=== PATIENT | female | born 1970 | race African-American/Black ===

== ENCOUNTER 2016-12-09 07:08 | Inpatient (IN) | payer BC ==
[~2016-12-09] VITALS: Ht 175.3 cm; Wt 77.3 kg
[~2016-12-09 07:08] MED LIST: ASC500 PO; MULTI PO; OMEG-135 PO
[2016-12-09] MEDS ORDERED: ASCO500C7 PO (07:29)
[2016-12-09] MEDS ORDERED: OMEG-135 PO (07:30)
[2016-12-09 07:44] LABS: ADD SCAN DIFF NO
[2016-12-09 07:50] LABS: BASOPHILS % 0.5 % (0.0-2.0); EOSINOPHILS # 0.1 10^3/ul (0.0-0.5); EOSINOPHILS % 2.2 % (0.0-7.0); HEMATOCRIT 38.9 % (37.0-47.0); HEMOGLOBIN 12.3 g/dl (12.0-16.0); LYMPHOCYTES # 2.1 10^3/ul (0.8-2.9); LYMPHOCYTES % 49.6 % (15.0-51.0); MEAN CORPUSCULAR HEMOGLOBIN 28.9 pg (29.0-33.0); MEAN CORPUSCULAR HGB CONC 31.6 g/dl (32.0-37.0); MEAN CORPUSCULAR VOLUME 91.5 fl (82.0-101.0); MEAN PLATELET VOLUME 11.8 fl (7.4-10.4); MONOCYTE # 0.3 10^3/ul (0.3-0.9); MONOCYTES % 7.3 % (0.0-11.0); NEUTROPHIL # 1.7 10^3/ul (1.6-7.5); NEUTROPHILS % 40.2 % (39.0-77.0); PLATELET COUNT 225 10^3/UL (140-415); RED BLOOD COUNT 4.25 10^6/ul (4.20-5.40); RED CELL DISTRIBUTION WIDTH 13.9 % (11.5-14.5); WHITE BLOOD COUNT 4.1 10^3/ul (4.8-10.8)
[2016-12-09 08:06] LABS: CHLORIDE 106 mmol/L (97-110)
[2016-12-09 08:07] LABS: ALBUMIN 3.9 g/dl (3.3-4.9); POTASSIUM 4.2 mmol/L (3.5-5.1); SODIUM 142 mmol/L (135-144)
[2016-12-09 08:10] LABS: ALANINE AMINOTRANSFERASE 23 IU/L (13-69); ALBUMIN/GLOBULIN RATIO 1.11; ALKALINE PHOSPHATASE 43 IU/L (42-121); ANION GAP 15 (8-16); ASPARTATE AMINO TRANSFERASE 20 IU/L (15-46); BILIRUBIN,INDIRECT 0.1 mg/dl (0-1.1); BILIRUBIN,TOTAL 0.1 mg/dl (0.2-1.3); BLOOD UREA NITROGEN 7 mg/dl (7-20); CARBON DIOXIDE 25 mmol/L (21-31); CREATININE 0.72 mg/dl (0.44-1.00); GLUCOSE 87 mg/dl (70-220); TOTAL PROTEIN 7.4 g/dl (6.1-8.1)
[2016-12-09 08:11] LABS: CALCIUM 9.3 mg/dl (8.4-10.2); INR 0.89; PT RATIO 0.9
[2016-12-09 08:12] LABS: PARTIAL THROMBOPLASTIN TIME 28.8 Sec (25.0-35.0)
--- NOTE | 2016-12-09 08:12 | RADRPT ---
PROCEDURE: Chest Radiograph. CLINICAL INDICATION: Chest pain TECHNIQUE: Single frontal chest radiograph. COMPARISON: None available FINDINGS: The cardiomediastinal silhouette is within normal limits. No infiltrate or effusion is seen. Th e bones are intact. IMPRESSION: 1. Unremarkable chest radiograph. RPTAT: AA .Emiliano Kramer MD, MD Date Time Electronically viewed and signed by .Emiliano Kramer MD, on 12/09/2016 08:11 .B/
[2016-12-09 08:18] LABS: B-TYPE NATRIURETIC PEPTIDE 109 PG/ML (0-125)
[2016-12-09 08:24] LABS: TROPONIN-I < 0.012 ng/ml (0.00-0.12)
[2016-12-09] MEDS ORDERED: NACL 0.9% 3 ML SYG IV SCH (13:00)
[2016-12-09] MEDS ORDERED: HYDROCODONE/APAP (5/325) TAB PO PRN (13:00)
[2016-12-09] MEDS ORDERED: morphine 2 MG INJ IV PRN (13:00)
[2016-12-09] MEDS ORDERED: ONDANSETRON 4 MG INJ IV PRN (13:00)
[2016-12-09] MEDS ORDERED: ACETAMINOPHEN 325 MG TAB PO PRN (13:00)
[2016-12-09] MEDS ORDERED: NITROGLYCERIN (SL) 0.4 MG TAB SL PRN (13:00)
[2016-12-09 13:54] LABS: CREATINE KINASE 90 IU/L (23-200)
[2016-12-09 13:57] VITALS: BP 127/74; PULSE 71; RESP 18; Ht 175.3 cm; Wt 77.3 kg
[2016-12-09 14:07] LABS: CK-MB < 0.22 ng/ml (0.0-2.4); TROPONIN-I < 0.012 ng/ml (0.00-0.12)
[2016-12-09 14:18] VITALS: PULSE 75
--- NOTE | 2016-12-09 14:24 | HP ---
DATE OF ADMISSION: 12/09/2016 TIME OF EVALUATION: 12:30 p.m. REASON FOR ADMISSION: Chest pain and dyspnea. CONSULTATIONS: Dr. Ton Graham, Cardiology. HISTORY OF PRESENT ILLNESS: This is a 46-year-old -[place]og[place] female who denies any past medical history who came to the emergency room with a chief complaint of chest pain and palpitations as well as dyspnea that has been going on and off for the past 2 months or so. The patient had a prior authorization with her insurance to see a ultrasonic tester because of these symptoms. A scheduled cardiology appointment was in 12/2016. The patient could not wait until then and the patient was having worsening symptoms. Hence, she came to the hospital. The patient verbalized the chest pain as an "elephant standing" on her chest. The patient verbalized that the chest pain is worse with lying down. The patient also verbalized periods of palpitations and dyspnea as well as generalized tiredness and episodes of dizziness. The patient denied any radiation of chest pain. The patient did not take any medications to help relieve her pain. The patient verbalized that a few months ago she went to see her primary care physician because of left upper extremity and left lower extremity numbness. At that time, she was told that this is probably because of her back injury that she had many years ago. The patient does not take any medications regularly for her back pain or left-sided numbness. The patient denied any left-sided numbness or weakness at this time. The patient denied any fevers, cough, abdominal pain, nausea, vomiting, diarrhea, hematochezia, dysuria. The patient denied any calf pain. In the emergency room, the patient' s troponins were negative. The patient's 12-lead EKG showed normal sinus rhythm. PAST MEDICAL HISTORY: Denies. PAST SURGICAL HISTORY: Cholecystectomy, tubal ligation. HOME MEDICATIONS: None. ALLERGIES: TETRACYCLINES. SOCIAL HISTORY: The patient lives at home. The patient works as an manager of program. No history of tobacco, alcohol or illicit drug use. FAMILY HISTORY: Negative for any coronary artery disease. REVIEW OF SYSTEMS: A 12-point review of systems was made and the review of systems is negative other than what is mentioned in history of present illness. PHYSICAL EXAMINATION VITAL SIGNS: Temperature 98.5, pulse 71, respiratory rate 18, blood pressure 123/71, oxygen saturation 99% on low flow O2. GENERAL: This is a well-built, well-nourished -[place]ogolese female lying in bed in no apparent distress. HEENT: Head normocephalic and atraumatic. Eyes: Anicteric sclerae. Conjunctivae clear. ENT: Nasal septum is midline. Oral mucosa is dry. NECK: Supple. No JVD noticed. RESPIRATORY: Bilaterally clear to auscultation. No adventitious breath sounds heard. No use of accessory muscles of respiration. CARDIAC: Regular rate and rhythm. S1, S2 heard. ABDOMEN: Soft, nontender and nondistended. Bowel sounds positive in all 4 quadrants. GENITOURINARY: Deferred. EXTREMITIES: No cyanosis, no clubbing, no edema. Peripheral pulses are palpable. NEUROLOGIC: The patient is awake, alert and oriented. Cranial nerves are grossly intact. LABORATORY AND DIAGNOSTIC DATA: WBC 4.1, hemoglobin 12.3, hematocrit 38.9, platelet count 225. Sodium 142, potassium 4.2, chloride 106, carbon dioxide 25 , anion gap 15, BUN 7, creatinine 0.72, glucose 87, calcium 9.3, AST 20, ALT 23 , alkaline phosphatase 43, troponin less than 0.012. BNP 109, total protein 7.4 , albumin 3.9. PT 12.0, INR 0.898, PTT 28.8. Chest x-ray: No acute cardiopulmonary findings. 12-lead EKG: Normal sinus rhythm. IMPRESSION: This is a 46-year-old -[place] female with no significant past medical history, but a recent history of chest pain and palpitations, who came to the emergency room with a chief complaint of worsening chest pain, palpitations and generalized malaise, who will be admitted for further treatment and evaluation. ASSESSMENT AND PLAN: 1. Chest pain. To rule out acute coronary syndrome. Serial troponins will be ordered on this patient. A 2D echocardiogram will be obtained to evaluate the left ventricular ejection fraction. The patient will be started on low dose aspirin. A cardiology consult will be obtained. The patient will be monitored on telemetry floor. Plan. The patient will be admitted to inpatient telemetry floor. The patient will be started on a regular diet. The patient will be started on deep venous thrombosis prophylaxis and gastrointestinal prophylaxis. The patient will remain a FULL CODE. Activities will be as tolerated. The rest of the patient's management will be based on the clinical course, the results of diagnostic studies, and input from consultants. Based on the patient's clinical presentation, she most probably requires at least 1 midnight's stay for further management and evaluation of her clinical presentation. The case and management of this patient was fully discussed with Dr. Hinson. ASHLY HINSON MD, AM/TOSHIA Conf#: [id number] DID#: [id number] EDMUND
[2016-12-09 15:31] VITALS: BP 139/67; RESP 18
[2016-12-09 16:00] VITALS: PULSE 85
--- NOTE | 2016-12-09 16:06 | CONS ---
DATE OF ADMISSION: 12/09/2016 DATE OF CONSULTATION: 12/09/2016 REASON FOR CONSULTATION: Chest pain, palpitations, assess for acute coronary syndrome. Assess for cardiac arrhythmia. REQUESTING PHYSICIAN: Dr. Hinson from the hospitalist service. HISTORY OF PRESENT ILLNESS: Ms. Modi is a very pleasant 46-year-old female with history of recent onset of palpitations and associated chest pain for approximately the last 2 to 3 months. The patie nt states the palpitations come on intermittently after exercise and subsides when she is just sitti ng still. Additionally, the patient had palpitations, started on the left side and when she lays on her back, she has a pressure-like feeling, as an elephant is standing on her chest. Upon arrival i n the emergency department, temperature 98.5, blood pressure 135/94, pulse 89, respiratory rate 22, saturating 99%. Patient's labs show sodium 142, potassium 4.2, creatinine 0.7, BUN 7, AST 20, ALT 2 3. Troponin negative. BNP 109. TSH of 1.41. Patient underwent a chest x-ray revealing no acute c ardiopulmonary abnormalities. The patient's electrocardiogram revealed normal sinus rhythm, rate of 83, normal axis, normal intervals, isolated T-wave flattening in aVL. The patient was treated with sublingual nitroglycerin and has been admitted to the floor. Since admit to floor, patient states she continues to have mild substernal chest pain. PAST MEDICAL HISTORY: As above in HPI. MEDICATIONS CURRENTLY IN HOSPITAL: 1. Aspirin 81 mg daily. 2. Lovenox 20 mg subcutaneous daily. 3. Sublingual nitroglycerin. 4. Tylenol p.r.n. 5. Omar p.r.n. 6. Morphine p.r.n. ALLERGIES: TETRACYCLINE. SOCIAL HISTORY: No tobacco, ETOH or illicit drug use. FAMILY HISTORY: No history of sudden cardiac or early CAD. REVIEW OF SYSTEMS: As above in HPI. CONSTITUTIONAL: No fevers, chills. PULMONARY: No current shortness of breath. CARDIOVASCULAR: Intermittent chest pain. GASTROINTESTINAL: No vomiting. GENITOURINARY: No hematuria. MUSCULOSKELETAL: No significant myalgias or arthralgias. ENDOCRINE: No documented history of diabetes mellitus. PHYSICAL EXAMINATION: VITAL SIGNS: Temperature 98.5, blood pressure 123/71, pulse 71, respiratory rate 18, saturating 99% . GENERAL: The patient is alert, awake, complaining of intermittent chest pain, palpitations. NECK: JVP approximately 8 cm water. CHEST: Fair air movement throughout. HEART: Regular rate and rhythm. Normal S1, S2, I/ systolic murmur, nondisplaced PMI. ABDOMEN: Positive bowel sounds, soft. EXTREMITIES: No pitting edema, 1+ pulses bilaterally, posterior tibial. LABORATORIES: As above in HPI with the troponins were negative since admit. IMAGING STUDIES: As above in HPI. No further imaging studies for my review at this time. ECG: No further electrocardiograms for my review at this time. IMPRESSION: 1. Chest pain, assess for acute coronary syndrome. 2. Palpitations, assess for cardiac arrhythmia. 3. Abnormal electrocardiogram with nonspecific ST-T abnormalities. RECOMMENDATIONS: 1. At this time, would maintain the patient on telemetry monitoring to follow rhythm and rate contr ol closely and assess for any possible rhythm causes to the patient's palpitations. 2. Check a 2D echocardiogram to further assess patient's ejection fraction, wall motion and any justo or valve abnormalities. 3. Complete a rule out for myocardial infarction to ensure that the patient's chest pain is not due to acute coronary syndrome versus acute myocardial infarction. 4. Check a TSH to be sure that subclinical hyperthyroidism is not contributing to bouts of palpitat ions or arrhythmias. 5. Will consider low dose oral nitrates to treat patient's chest pain. 6. Sublingual nitroglycerin p.r.n. for breakthrough pain. 7. If the patient does rule out for myocardial infarction, will consider cardiac stress test in the morning. Thank you for allowing me to take part in the care of this patient. I will continue to follow along very closely with you. Further recommendations to be made as the patient progresses through her in patient hospital course. Dictated By: HENRIK GASTELUM/TOSHIA Conf#: [id number] DID#: [id number] CC: ASHLY AUSTIN NP; GLORIA HINSON MD;*End*
[2016-12-09] MEDS: ASPIRIN 81 MG TAB PO SCH (16:59)
[2016-12-09] MEDS: FAMOTIDINE 20 MG TAB PO SCH ×2 (16:59→23:21)
[2016-12-09] MEDS: ENOXAPARIN 40 MG/0.4 ML SYG SC SCH (17:06)
[2016-12-09 17:17] LABS: ADD UMIC NO; URINE BILIRUBIN (Dip) NEGATIVE (NEGATIVE); URINE BLOOD (Dip) NEGATIVE (NEGATIVE); URINE COLOR LT. YELLOW (YELLOW); URINE GLUCOSE (Dip) NEGATIVE (NEGATIVE); URINE KETONES (Dip) NEGATIVE (NEGATIVE); URINE LEUKOCYTE ESTERASE (Dip) NEGATIVE (NEGATIVE); URINE NITRITE (Dip) NEGATIVE (NEGATIVE); URINE TOTAL PROTEIN (Dip) NEGATIVE (NEGATIVE); URINE UROBILINOGEN (Dip) 0.2 E.U./dL (0.1-1.0)
[2016-12-09 18:15] LABS: BARBITURATES NEGATIVE (NEGATIVE); BENZODIAZEPINES NEGATIVE (NEGATIVE); CANNABINOIDS NEGATIVE (NEGATIVE); COCAINE NEGATIVE (NEGATIVE); OPIATES NEGATIVE (NEGATIVE)
--- NOTE | 2016-12-09 19:22 | RADRPT ---
Echocardiogram Report Patient Name: LUCERO GARCIA Gender: Female Date: 1970 Study Date: 09-Dec-2016 Director Of Partner Marketing: Chelsie Lozano RDCS Location: 9 Ref. Physician: ASHLY AUSTIN Quality: Adequate Procedures: Transthoracic echocardiogram with complete 2D, M-Mode, and doppler examination. Indications: Chest Pain. 2D/M Mode Doppler Measurement Value Normal Ranges Measurement Value Normal Ranges LVIDd 2D 4.5 3.5 - 5.6 cm AV Peak Jefe 0.9 m/sec LVIDs 2D 3.2 2.1 - 4.1 cm AV Peak PG 3.5 mmHg LVPWd 2D 1.2 0.6 - 1.1 cm LVOT Peak Jefe 0.9 m/sec IVSd 2D 1.2 0.6 - 1.1 cm LVOT Peak PG 3.1 mmHg AoR Diam 2D 2.9 2.0 - 3.7 cm MV E Peak Jefe 0.7 m/sec EDV 2D 93.2 cm3 MV A Peak Jefe 0.7 m/sec ESV 2D 33.1 cm3 MV E/A 1.1 LA Dimen 2D 3.1 2.3 - 4.0 cm MV Decel Time 208 msec MV Decel [place] 3 MV E/A 1.1 TR Peak Jefe 2.8 m/sec TR Peak PG 30.8 mmHg RVSP 39.0 mmHg Findings Left Ventricle: Normal left ventricular systolic function. Normal left ventricular cavity size. Mild concentric left ventricular hypertrophy. Ejection fraction is visually estimated at 55 %. Tissue Doppler/Mitral Doppler indices are consistent with impaired relaxation (Stage I diastolic dysfunction). Right Ventricle: Normal right ventricular size. Normal right ventricular systolic function. Left Atrium: The left atrium is normal in size. Right Atrium: The right atrium is normal in size. Mitral Valve: Mitral valve leaflets appear mildly thickened. Mild mitral annular calcification. Trace mitral regurgitation. Aortic Valve: Normal appearance of the aortic valve. No significant aortic stenosis or insufficiency. Tricuspid Valve: Normal appearance of the tricuspid valve. Estimated peak PA systolic pressure 39 mmHg. There is trace to mild tricuspid regurgitation. Pulmonic Valve: Pulmonic valve not well visualized. Pericardium: Normal pericardium with no significant pericardial effusion. Aorta: Normal aortic root. IVC: Normal size and normal respiratory collapse consistent with normal right atrial pressure. Conclusions 1.Normal left ventricular systolic function. Normal left ventricular cavity size. Mild concentric left ventricular hypertrophy. Ejection fraction is visually estimated at 55 %. Tissue Doppler/Mitral Doppler indices are consistent with impaired relaxation (Stage I diastolic dysfunction). 2.Mitral valve leaflets appear mildly thickened. Mild mitral annular calcification. Trace mitral regurgitation. 3.Normal appearance of the tricuspid valve. Estimated peak PA systolic pressure 39 mmHg. There is trace to mild tricuspid regurgitation. Electronically Signed By: Ton Graham 09-Dec-2016 19:21:05 -0700 Patient Name: LUCERO GARCIA Study Date: 09-Dec-2016 [id number]
[2016-12-09 20:00] VITALS: BP 134/60; RESP 18
[2016-12-09 20:02] LABS: CREATINE KINASE 77 IU/L (23-200)
[2016-12-09 20:08] VITALS: PULSE 80
[2016-12-09 20:17] LABS: CK-MB < 0.22 ng/ml (0.0-2.4); TROPONIN-I < 0.012 ng/ml (0.00-0.12)
[2016-12-09] MEDS: ISOSORBIDE DINITRATE 10 MG TAB PO SCH (20:50)
[2016-12-10] VITALS (8 sets, daily range): BP systolic 106–136; BP diastolic 52–69; PULSE 68–86; RESP 16
[2016-12-10 06:52] LABS: ADD SCAN DIFF NO
[2016-12-10 06:55] LABS: BASOPHILS % 0.6 % (0.0-2.0); EOSINOPHILS # 0.1 10^3/ul (0.0-0.5); EOSINOPHILS % 1.5 % (0.0-7.0); HEMATOCRIT 35.5 % (37.0-47.0); HEMOGLOBIN 11.3 g/dl (12.0-16.0); LYMPHOCYTES # 1.6 10^3/ul (0.8-2.9); LYMPHOCYTES % 47.5 % (15.0-51.0); MEAN CORPUSCULAR HEMOGLOBIN 28.9 pg (29.0-33.0); MEAN CORPUSCULAR HGB CONC 31.8 g/dl (32.0-37.0); MEAN CORPUSCULAR VOLUME 90.8 fl (82.0-101.0); MEAN PLATELET VOLUME 11.7 fl (7.4-10.4); MONOCYTE # 0.3 10^3/ul (0.3-0.9); NEUTROPHIL # 1.4 10^3/ul (1.6-7.5); NEUTROPHILS % 42.1 % (39.0-77.0); PLATELET COUNT 205 10^3/UL (140-415); RED BLOOD COUNT 3.91 10^6/ul (4.20-5.40); RED CELL DISTRIBUTION WIDTH 13.8 % (11.5-14.5); WHITE BLOOD COUNT 3.3 10^3/ul (4.8-10.8)
[2016-12-10 07:14] LABS: MAGNESIUM 1.8 mg/dl (1.7-2.5)
[2016-12-10 07:18] LABS: ALBUMIN 3.4 g/dl (3.3-4.9); ALBUMIN/GLOBULIN RATIO 1.03; BILIRUBIN,INDIRECT 0.1 mg/dl (0-1.1); BILIRUBIN,TOTAL 0.1 mg/dl (0.2-1.3); CALCIUM 8.8 mg/dl (8.4-10.2); CREATININE 0.73 mg/dl (0.44-1.00); POTASSIUM 4.1 mmol/L (3.5-5.1); TOTAL PROTEIN 6.7 g/dl (6.1-8.1)
[2016-12-10 07:24] LABS: CHOL/HDL RATIO 3.4 RATIO
[2016-12-10] MEDS: ASPIRIN 81 MG TAB PO SCH (08:18)
[2016-12-10] MEDS: ISOSORBIDE DINITRATE 10 MG TAB PO SCH ×2 (08:23→13:28)
[2016-12-10] MEDS: FAMOTIDINE 20 MG TAB PO SCH (08:23)
[2016-12-10] MEDS: ENOXAPARIN 40 MG/0.4 ML SYG SC SCH (09:02)
[2016-12-10 09:08] LABS: CREATINE KINASE 72 IU/L (23-200)
[2016-12-10 09:10] LABS: CK-MB < 0.22 ng/ml (0.0-2.4)
[2016-12-10 09:24] LABS: TROPONIN-I < 0.012 ng/ml (0.00-0.12)
--- NOTE | 2016-12-10 12:41 | PDOCDIS ---
Discharge Instructions DIAGNOSIS Discharge Diagnosis: 1. Chest pain 2. Reported chest palpitations CONDITION Patient Condition: Stable HOME CARE INSTRUCTIONS: Diet Instructions: Low Fat /Cholesterol FOLLOW UP/APPOINTMENTS Appointments 1. Follow-up with your primary care provider within a week 2. Follow-up with Dr. Ton Graham in 2 weeks NIKKI FORTUNE December 10, 2016 12:41
[2016-12-10] MEDS ORDERED: ISOS10TA2 PO (12:43)
[2016-12-10] MEDS ORDERED: ASPI81TA3 PO (12:43)
--- NOTE | 2016-12-10 16:16 | CONS ---
Date/Time of Note Date/Time of Note DATE: 12/10/16 TIME: 16:11 Assessment/Plan Assessment/Plan Additional Assessment/Plan Atypical chest pain non myocardial in nature echo shows normal systolic function no more episodes of chest pain ok for discharge stopped imdur Consultation Date/Type/Reason Admit Date/Time December 09, 2016 at 11:11 Social History Smoking Status: Never smoker Exam/Review of Systems Vital Signs Vitals Vital Signs Date Time Temp Pulse Resp B/P Pulse Ox O2 Delivery O2 Flow Rate FiO2 12/10/16 13:01 70 12/10/16 12:13 98.5 16 136/67 99 12/09/16 13:57 Room Air Intake and Output 12/09/16 12/09/16 12/10/16 15:00 23:00 07:00 Intake Total 500 ml 500 ml Balance 500 ml 500 ml Exam Constitutional: alert, oriented Head: atraumatic, normocephalic Respiratory: clear to auscultation Cardiovascular: regular rate and rhythm Gastrointestinal: nl liver, spleen, non-tender, soft Extremities: normal pulses Results Result Diagram: 12/10/16 0600 12/10/16 0600 Results 24 hrs Laboratory Tests Test 12/09/16 19:30 12/10/16 06:00 Creatine Kinase 77 72 Creatine Kinase Index 0.3 0.3 Creatinine Kinase MB (Mass) < 0.22 < 0.22 Troponin I < 0.012 < 0.012 White Blood Count 3.3 L Red Blood Count 3.91 L Hemoglobin 11.3 L Hematocrit 35.5 L Mean Corpuscular Volume 90.8 Mean Corpuscular Hemoglobin 28.9 L Mean Corpuscular Hemoglobin Concent 31.8 L Red Cell Distribution Width 13.8 Platelet Count 205 Mean Platelet Volume 11.7 H Neutrophils % 42.1 Lymphocytes % 47.5 Monocytes % 8.0 Eosinophils % 1.5 Basophils % 0.6 Nucleated Red Blood Cells % 0.0 Neutrophils # 1.4 L Lymphocytes # 1.6 Monocytes # 0.3 Eosinophils # 0.1 Basophils # 0.0 Nucleated Red Blood Cells # 0.0 Sodium Level 137 Potassium Level 4.1 Chloride Level 109 Carbon Dioxide Level 24 Anion Gap 8 Blood Urea Nitrogen 8 Creatinine 0.73 Glucose Level 86 Calcium Level 8.8 Phosphorus Level 4.0 Magnesium Level 1.8 Total Bilirubin 0.1 L Direct Bilirubin 0.00 Indirect Bilirubin 0.1 Aspartate Amino Transf (AST/SGOT) 17 Alanine Aminotransferase (ALT/SGPT) 24 Alkaline Phosphatase 36 L Total Protein 6.7 Albumin 3.4 Globulin 3.30 H Albumin/Globulin Ratio 1.03 Triglycerides Level 41 Cholesterol Level 170 LDL Cholesterol, Calculated 112 HDL Cholesterol 50 Cholesterol/HDL Ratio 3.4 Medications Medications Current Medications Ondansetron HCl (Zofran Inj) 4 mg Q6H PRN IV NAUSEA AND/OR VOMITING; Start at 13:00 Aspirin (Aspirin) 81 mg DAILY PO Last administered on 12/10/16 08:18; Admin Dose 81 MG; Start 12/09/16 at 14:00 Nitroglycerin (Nitroglycerin (Sl Tab) 0.4 Mg) 1 tab Q5M PRN SL CHEST PAIN; Start 12/09/16 at 13:00 Acetaminophen (Tylenol Tab) 650 mg Q6H PRN PO PAIN LEVEL 1-3 OR FEVER Last administered on 12/10/16 08:18; Admin Dose 650 MG; Start 12/09/16 at 13:00 Acetaminophen/ Hydrocodone Bitart ([place] (5/325)) 1 tab Q6H PRN PO PAIN LEVEL 4 -6 Last administered on 12/10/16 11:06; Admin Dose 1 TAB; Start 12/09/16 at 13: 00 Morphine Sulfate (morphine) 2 mg Q4H PRN IV PAIN LEVEL 7-10; Start 12/09/16 at 13:00 Famotidine (Pepcid) 20 mg Q12 PO Last administered on 12/10/16 08:23; Admin Dose 20 MG; Start 12/09/16 at 14:00 Enoxaparin Sodium (Lovenox) 40 mg DAILY SC Last administered on 12/10/16 09:02 ; Admin Dose 40 MG; Start 12/09/16 at 14:00 Isosorbide Dinitrate (Isordil) 10 mg TID PO Last administered on 12/10/16 13: 28; Admin Dose 10 MG; Start 12/09/16 at 21:00 JUANI PAZ M.D. December 10, 2016 16:16
--- NOTE | 2016-12-10 17:21 | DS ---
Date/Time of Note Date/Time of Note DATE: 12/10/16 TIME: 17:18 Discharge Summary Admission/Discharge Info Admit Date/Time December 09, 2016 at 11:11 Discharge Date/Time December 10, 2016 at 16:54 Patient Condition: Stable Consults 1. Dr. Ton Graham 2. Dr. Mateo Almazan [facility] This is a 46-year-old female with no reported past medical history came to [facility] due to reports of chest pain as well as palpitations and dyspnea. She did report that symptoms have been going on for 2 months duration. She of note was scheduled to see Dr. Ton Graham on December 2016. Due to her worsening of symptoms she came to [facility]. She was consulted by Dr. Ton Graham and was seen by his team here. Patient did have serial troponins drawn which were all essentially negative. Additionally she had an echocardiogram done that did show her to have an ejection fraction of 55% with stage I diastolic dysfunction. Patient was optimized with aspirin. She was initially placed on Isordil medication but did report having subsequent headaches from this. After review by brick setter we did continue her on aspirin and she was instructed to follow-up with brick setter as outpatient for further monitoring and care of her cardiac issues. She did report resolution of her chest pain and no further shortness of breath is reported. She was resumed on aspirin on discharge. During the course of stay he did improve. The plan of care was discussed with the patient and patient did verbalize understanding. On the day of discharge patient was in stable condition Discussed plan of care with Dr. Danielle Discharge process 40 minutes Home Meds Active Scripts Aspirin (Aspirin) 81 Mg Chew, 81 MG PO DAILY, #30 TAB Prov:NIKKI FORTUNE 12/10/16 Reported Medications [place]-3 Fatty Acids/Fish Oil (Fish Oil 1,000 mg Capsule) 1 Each Capsule, 1 EACH PO DAILY, CAP 12/09/16 Ascorbic Acid* (Vitamin C*) 500 Mg Capsule.sa, 500 MG PO DAILY, CAP 12/09/16 Discontinued Reported Medications Fish Oil* (Fish Oil*) 1,000 Mg Cap, PO DAILY, CAP 04/11/14 Ascorbic Acid (Vitamin C) 500 Mg Tab, PO DAILY, TAB 04/11/14 Multivitamins* (Theragran*) 1 Tab Tab, 1 TAB PO DAILY, TAB 04/11/14 Follow-up Plan CONDITION Patient Condition: Stable HOME CARE INSTRUCTIONS: Diet Instructions: Low Fat /Cholesterol FOLLOW UP/APPOINTMENTS Appointments 1. Follow-up with your primary care provider within a week 2. Follow-up with Dr. Ton Graham in 2 weeks Primary Care Provider Tommy Lofton MD Pending Labs Laboratory Tests Test 12/09/16 19:30 12/10/16 06:00 Creatine Kinase 77IU/L (23-200) 72IU/L (23-200) Creatine Kinase Index 0.3 0.3 Creatinine Kinase MB (Mass) < 0.22ng/ml (0.0-2.4) < 0.22ng/ml (0.0-2.4) Troponin I < 0.012ng/ml (0.00-0.12) < 0.012ng/ml (0.00-0.12) White Blood Count 3.310^3/ul (4.8-10.8) Red Blood Count 3.9110^6/ul (4.20-5.40) Hemoglobin 11.3g/dl (12.0-16.0) Hematocrit 35.5% (37.0-47.0) Mean Corpuscular Volume 90.8fl (82.0-101.0) Mean Corpuscular Hemoglobin 28.9pg (29.0-33.0) Mean Corpuscular Hemoglobin Concent 31.8g/dl (32.0-37.0) Red Cell Distribution Width 13.8% (11.5-14.5) Platelet Count 33913^3/UL (140-415) Mean Platelet Volume 11.7fl (7.4-10.4) Neutrophils % 42.1% (39.0-77.0) Lymphocytes % 47.5% (15.0-51.0) Monocytes % 8.0% (0.0-11.0) Eosinophils % 1.5% (0.0-7.0) Basophils % 0.6% (0.0-2.0) Nucleated Red Blood Cells % 0.0/100WBC (0.0-0.0) Neutrophils # 1.410^3/ul (1.6-7.5) Lymphocytes # 1.610^3/ul (0.8-2.9) Monocytes # 0.310^3/ul (0.3-0.9) Eosinophils # 0.110^3/ul (0.0-0.5) Basophils # 0.010^3/ul (0.0-0.1) Nucleated Red Blood Cells # 0.010^3/ul (0.0-0.0) Sodium Level 137mmol/L (135-144) Potassium Level 4.1mmol/L (3.5-5.1) Chloride Level 109mmol/L (97-110) Carbon Dioxide Level 24mmol/L (21-31) Anion Gap 8 (8-16) Blood Urea Nitrogen 8mg/dl (7-20) Creatinine 0.73mg/dl (0.44-1.00) Glucose Level 86mg/dl (70-220) Calcium Level 8.8mg/dl (8.4-10.2) Phosphorus Level 4.0mg/dl (2.5-4.9) Magnesium Level 1.8mg/dl (1.7-2.5) Total Bilirubin 0.1mg/dl (0.2-1.3) Direct Bilirubin 0.00mg/dl (0.00-0.20) Indirect Bilirubin 0.1mg/dl (0-1.1) Aspartate Amino Transf (AST/SGOT) 17IU/L (15-46) Alanine Aminotransferase (ALT/SGPT) 24IU/L (13-69) Alkaline Phosphatase 36IU/L (42-121) Total Protein 6.7g/dl (6.1-8.1) Albumin 3.4g/dl (3.3-4.9) Globulin 3.30g/dl (1.3-3.2) Albumin/Globulin Ratio 1.03 Triglycerides Level 41mg/dl (0-149) Cholesterol Level 170mg/dl (100-200) LDL Cholesterol, Calculated 112mg/dl HDL Cholesterol 50mg/dl (34-88) Cholesterol/HDL Ratio 3.4RATIO NIKKI FORTUNE December 10, 2016 17:21
--- NOTE | 2016-12-13 00:23 | RADRPT ---
Vent Rate: 88 bpm RR Interval: 0 msec MD Interval: 130 msec QRS Duration: 82 msec QT Interval: 386 msec QTC Interval: 467 msec P-R-T [place]: 54 - 69 - 24 degrees Normal sinus rhythm Nonspecific T wave abnormality Prolonged QT Abnormal ECG Electronically Signed By: Ton Graham [id number]
== END 2016-12-10 16:54 | disposition home or self-care (01) | DRG 313 ==
LOC: E/R 07:08 → TEL 11:11
PROVIDERS: ADMIT Family Medicine; ATTEND Family Medicine
DX: R07.89 Other chest pain (principal); G44.40 Drug-induced headache, not elsewhere classified, not intractable; R00.2 Palpitations; R06.00 Dyspnea, unspecified; R94.31 Abnormal electrocardiogram [ECG] [EKG]; T46.3X5A Adverse effect of coronary vasodilators, initial encounter; Y92.230 Patient room in hospital as the place of occurrence of the external cause
CPT/HCPCS: 71010; 80053; 80061; 80307; 81003; 82550; 82553; 83036; 83735; 83880; 84100; 84439; 84443; 84484; 84703; 85025; 85610; 85730; 93005; 93306; J1650